=== PATIENT | female | born 1945 | race Caucasian/White ===

== ENCOUNTER 2021-07-15 13:37 | Inpatient (IN) | payer MEDICARE, MEDICAID ==
[~2021-07-15] VITALS: Ht 157.5 cm; Wt 42.0 kg
[~2021-07-15 13:37] MED LIST: ADV50500 IH; ALBU18HF2 INH; CLON-527 PO; CLOP75TA34 PO; HYDR-4383 PO; IPRA4AER IH; LAMO25TA5 PO; OXYGEN NAS; PRAV10TA38 PO; QUET200T5 PO
[2021-07-15] MEDS ORDERED: normal saline 1000ML IV soln IV ONE (16:05)
[2021-07-15] MEDS ORDERED: iohexol 350MG/ML 100ml bottle IV ONE (16:30)
[2021-07-15] MEDS ORDERED: iohexol 350 MG/ML 50ML vial IV ONE (16:30)
[2021-07-15 17:03] LABS: BASOPHILS % (AUTO) 0.5 % (0-1); EOSINOPHILS % (AUTO) 0 % (0-6); LYMPHOCYTES # (AUTO) 1.4 X10'3 (1.1-4.8); LYMPHOCYTES % (AUTO) 15.3 % (21-51); MEAN CORPUSCULAR HEMOGLOBIN 26.4 PG (27.0-31.0); MEAN CORPUSCULAR HGB CONC 32.6 g/dL (33.0-36.5); MEAN CORPUSCULAR VOLUME 81.1 FL (78-98); MEAN PLATELET VOLUME 7.9 FL (7.4-10.4); MONOCYTES # (AUTO) 0.3 X10'3 (0-0.9); MONOCYTES % (AUTO) 3.5 % (2-12); NEUTROPHILS # (AUTO) 7.5 X10'3 (1.8-7.7); NEUTROPHILS % (AUTO) 80.7 % (42-75); PLATELET COUNT 304 X10'3 (140-440); RED BLOOD COUNT 4.94 X10'6 (4.20-5.60); RED CELL DISTRIBUTION WIDTH 17.7 % (11.5-14.5); WHITE BLOOD COUNT 9.3 X10'3 (4.5-11.0)
[2021-07-15 17:27] LABS: ALANINE AMINOTRANSFERASE 31 U/L (12-78); ALBUMIN 3.7 G/DL (3.4-5.0); ALBUMIN/GLOBULIN RATIO 0.9 (1.1-1.5); ANION GAP 5 (8-16); ASPARTATE AMINO TRANSFERASE 23 U/L (10-37); BLOOD UREA NITROGEN 20 MG/DL (7-18); BUN/CREATININE RATIO 41.7 (6.6-38.0); CALCIUM 8.9 MG/DL (8.5-10.1); CHLORIDE 101 MMOL/L (99-107); CREATININE 0.48 MG/DL (0.40-0.90); GLUCOSE 128 MG/DL (70-104); POTASSIUM 4.3 MMOL/L (3.5-5.1); SODIUM 139 MMOL/L (135-145); TOTAL CARBON DIOXIDE 33.1 MMOL/L (24-32); TOTAL PROTEIN 7.7 G/DL (6.4-8.2); eGFR > 90 ML/MIN
[2021-07-15] MEDS ORDERED: heparin 25,000 UNIT/250ml bag 250 ML IV SCH ×2 (18:45→19:45)
[2021-07-15] MEDS ORDERED: heparin 10,000 units/1 ML INJ IV ONE ×3 (18:45→19:45)
[2021-07-15 19:00] LABS: APTT 29 SECONDS (22-32)
[2021-07-15] MEDS ORDERED: morphine 4 MG/ML inj SYRINge IV ONE (19:05)
[2021-07-15] MEDS ORDERED: HYDROcodone/acetaminophen 5mg/325mg tablet PO PRN (19:45)
[2021-07-15] MEDS ORDERED: morphine 2 MG/ML inj. syringe IV PRN (19:45)
[2021-07-15] MEDS ORDERED: heparin 10,000 units/1 ML INJ IV PRN (19:45)
[2021-07-15] MEDS ORDERED: mag hydrox/Alum hydrox/simeth 30ml oral suspension PO PRN (19:45)
[2021-07-15] MEDS ORDERED: magnesium hydroxide 30ml (MOM) UD suspension PO PRN (19:45)
[2021-07-15] MEDS ORDERED: ondansetron/PF 4mg/2ml inj IV PRN (19:45)
[2021-07-15] MEDS ORDERED: acetaminophen 325mg tablet PO PRN ×2 (19:45)
[2021-07-15] MEDS ORDERED: LORA-268 PO (21:17)
[2021-07-15] MEDS ORDERED: APIX5TAB3 PO (21:44)
[2021-07-15] MEDS ORDERED: BUSP15TA7 PO (21:44)
[2021-07-15] MEDS ORDERED: PRED20TA PO (21:44)
--- NOTE | 2021-07-15 22:00 | NUR ---
Received report from CAMERON Garcia RN about patient going to room 3012C. Awaiting on arrival.
--- NOTE | 2021-07-15 22:50 | NUR ---
The patient, HAYES LEONARD, 75 y/o, F admitted by ENRRIQUE CERVANTES MD, was given written information regarding hospital policies, unit procedures and contact persons. See Admission information. V/S: B/P 168/78, R 14, 72 HR, T 98.1, 02 97% on 3L. Patient arrived to the unit in stable condition, no acute distress noted. Safety measures and comfort maintained. Will continue to monitor.
[2021-07-15 23:00] VITALS: BP 168/78
[2021-07-15] MEDS ORDERED: non-formulary drug (Ipratropium/Albuterol Sulfate (Combivent Respimat Inhal Spray) 2 PUFFS IH PRN (23:00)
[2021-07-15] MEDS: morphine 2 MG/ML inj. syringe IV PRN (23:06)
[2021-07-15] MEDS ORDERED: ipratropium/albuterol 3ml nebule ONE (23:11)
[2021-07-15] MEDS: ipratropium/albuterol 3ml nebule NEB SCH (23:17)
[2021-07-15] MEDS: LORazepam 0.5 MG tablet PO PRN (23:46)
[2021-07-15] MEDS: docusate sod 100mg capsule PO SCH (23:46)
[2021-07-16] MEDS: ipratropium/albuterol 3ml nebule NEB SCH ×4 (03:03→20:16)
[2021-07-16 06:00] VITALS: BP 129/69
--- NOTE | 2021-07-16 06:35 | NUR ---
Problems reprioritized. Patient report given, questions answered & plan of care reviewed with AAMIR Cortes.
[2021-07-16 07:35] LABS: BASOPHILS % (AUTO) 0.4 % (0-1); EOSINOPHILS # (AUTO) 0.1 X10'3 (0-0.9); EOSINOPHILS % (AUTO) 0.9 % (0-6); HEMATOCRIT 32.3 % (35.0-45.0); HEMOGLOBIN 10.6 g/dl (12.0-16.0); LYMPHOCYTES # (AUTO) 3.5 X10'3 (1.1-4.8); LYMPHOCYTES % (AUTO) 37.5 % (21-51); MEAN CORPUSCULAR HEMOGLOBIN 26.6 PG (27.0-31.0); MEAN CORPUSCULAR HGB CONC 32.8 g/dL (33.0-36.5); MEAN PLATELET VOLUME 7.8 FL (7.4-10.4); MONOCYTES # (AUTO) 1.1 X10'3 (0-0.9); MONOCYTES % (AUTO) 12.2 % (2-12); NEUTROPHILS # (AUTO) 4.5 X10'3 (1.8-7.7); PLATELET COUNT 229 X10'3 (140-440); RED BLOOD COUNT 3.98 X10'6 (4.20-5.60); RED CELL DISTRIBUTION WIDTH 17.3 % (11.5-14.5); WHITE BLOOD COUNT 9.2 X10'3 (4.5-11.0)
[2021-07-16] MEDS: morphine 2 MG/ML inj. syringe IV PRN (07:48)
[2021-07-16] MEDS: budesonide 0.5mg/2ml UD nebule IH SCH ×2 (07:57→20:00)
[2021-07-16 08:03] LABS: ALBUMIN 2.8 G/DL (3.4-5.0); ANION GAP 4 (8-16); BLOOD UREA NITROGEN 15 MG/DL (7-18); BUN/CREATININE RATIO 32.6 (6.6-38.0); CALCIUM 8.2 MG/DL (8.5-10.1); CHLORIDE 105 MMOL/L (99-107); CREATININE 0.46 MG/DL (0.40-0.90); GLUCOSE 89 MG/DL (70-104); POTASSIUM 4.1 MMOL/L (3.5-5.1); SODIUM 141 MMOL/L (135-145); TOTAL CARBON DIOXIDE 32.2 MMOL/L (24-32); eGFR > 90 ML/MIN
[2021-07-16] MEDS: busPIRone 15mg tablet PO SCH (09:32)
[2021-07-16] MEDS: docusate sod 100mg capsule PO SCH ×2 (09:32→20:52)
[2021-07-16] MEDS: predniSONE 20 mg tablet PO SCH (09:32)
[2021-07-16] MEDS: LORazepam 0.5 MG tablet PO PRN (09:38)
[2021-07-16 11:00] VITALS: BP 145/72
[2021-07-16 15:00] VITALS: BP 150/60
--- NOTE | 2021-07-16 16:29 | NUR ---
provided PO [place] for c/o headache and foot pain
[2021-07-16 18:00] VITALS: BP 154/65
--- NOTE | 2021-07-16 18:25 | NUR ---
Patient in room PCU 3012. I have received report from AAMIR Lovelace, and had the opportunity to ask questions and assume patient care.
[2021-07-16] MEDS: apixaban 5mg tablet PO SCH (20:57)
[2021-07-16] MEDS: HYDROcodone/acetaminophen 10/325mg tab PO PRN (21:02)
[2021-07-16 22:00] VITALS: BP 129/55
[2021-07-17 02:00] VITALS: BP 159/75
[2021-07-17] MEDS: ipratropium/albuterol 3ml nebule NEB SCH ×2 (02:19→08:41)
[2021-07-17 06:00] VITALS: BP 150/72
--- NOTE | 2021-07-17 06:30 | NUR ---
Patient in room PCU 3012. I have received report from AAMIR Kern and had the opportunity to ask questions and assume patient care. Resting comfortably in bed without any concerns.
--- NOTE | 2021-07-17 06:30 | NUR ---
Patient in room PCU 3012. I have received report from Concha RUTLEDGE and had the opportunity to ask questions and assume patient care.
--- NOTE | 2021-07-17 06:44 | NUR ---
Problems reprioritized. Patient report given, questions answered & plan of care reviewed with AAMIR Epps
[2021-07-17 06:53] LABS: BASOPHILS # (AUTO) 0.1 X10'3 (0-0.2); BASOPHILS % (AUTO) 0.5 % (0-1); EOSINOPHILS # (AUTO) 0.1 X10'3 (0-0.9); EOSINOPHILS % (AUTO) 0.5 % (0-6); HEMATOCRIT 34.7 % (35.0-45.0); HEMOGLOBIN 11.4 g/dl (12.0-16.0); LYMPHOCYTES # (AUTO) 3.4 X10'3 (1.1-4.8); LYMPHOCYTES % (AUTO) 33.3 % (21-51); MEAN CORPUSCULAR HEMOGLOBIN 26.7 PG (27.0-31.0); MEAN CORPUSCULAR VOLUME 80.9 FL (78-98); MEAN PLATELET VOLUME 7.8 FL (7.4-10.4); MONOCYTES # (AUTO) 1.2 X10'3 (0-0.9); MONOCYTES % (AUTO) 11.9 % (2-12); NEUTROPHILS # (AUTO) 5.5 X10'3 (1.8-7.7); NEUTROPHILS % (AUTO) 53.8 % (42-75); PLATELET COUNT 237 X10'3 (140-440); RED BLOOD COUNT 4.29 X10'6 (4.20-5.60); RED CELL DISTRIBUTION WIDTH 17.4 % (11.5-14.5); WHITE BLOOD COUNT 10.2 X10'3 (4.5-11.0)
[2021-07-17 07:08] LABS: ANION GAP 3 (8-16); CHLORIDE 105 MMOL/L (99-107); GLUCOSE 77 MG/DL (70-104); SODIUM 141 MMOL/L (135-145); TOTAL CARBON DIOXIDE 33.5 MMOL/L (24-32)
[2021-07-17 07:09] LABS: ALBUMIN 3.1 G/DL (3.4-5.0); BLOOD UREA NITROGEN 12 MG/DL (7-18); BUN/CREATININE RATIO 29.3 (6.6-38.0); CALCIUM 8.6 MG/DL (8.5-10.1); CREATININE 0.41 MG/DL (0.40-0.90); eGFR > 90 ML/MIN
[2021-07-17] MEDS: busPIRone 15mg tablet PO SCH (08:08)
[2021-07-17] MEDS: docusate sod 100mg capsule PO SCH (08:08)
[2021-07-17] MEDS: apixaban 5mg tablet PO SCH (08:09)
[2021-07-17] MEDS: HYDROcodone/acetaminophen 10/325mg tab PO PRN (08:10)
[2021-07-17] MEDS: predniSONE 20 mg tablet PO SCH (08:10)
[2021-07-17] MEDS: budesonide 0.5mg/2ml UD nebule IH SCH (08:41)
[2021-07-17 11:00] VITALS: BP 163/76
[2021-07-17] MEDS ORDERED: APIX5TAB3 PO (11:21)
[2021-07-17] MEDS: LORazepam 0.5 MG tablet PO PRN (11:42)
--- NOTE | 2021-07-17 13:00 | NUR ---
Patient is stable for discharge per MD. Discharge paperwork reviewed with patient. All questions answered. No home medications sent home with patient. PIV and manager change removed from patient. This magnetic tape typewriter operator assisted the patient out of the hospital via a wheelchair to the patient's mode of transportation home.
== END 2021-07-17 13:00 | disposition home or self-care (01) | DRG 74 ==
LOC: ER 13:37 → ED HOLD 19:45 → PCU 3S 22:50
PROVIDERS: ADMIT Internal Medicine; ATTEND Family Medicine
PROC: B4201ZZ Computerized Tomography (CT Scan) of Abdominal Aorta using Low Osmolar Contrast (ICD-10-PCS; principal; 2021-07-15)
PROC: B4241ZZ Computerized Tomography (CT Scan) of Superior Mesenteric Artery using Low Osmolar Contrast (ICD-10-PCS; 2021-07-15)
PROC: B4281ZZ Computerized Tomography (CT Scan) of Bilateral Renal Arteries using Low Osmolar Contrast (ICD-10-PCS; 2021-07-15)
PROC: B42C1ZZ Computerized Tomography (CT Scan) of Pelvic Arteries using Low Osmolar Contrast (ICD-10-PCS; 2021-07-15)
PROC: B42H1ZZ Computerized Tomography (CT Scan) of Bilateral Lower Extremity Arteries using Low Osmolar Contrast (ICD-10-PCS; 2021-07-15)
PROC: B4211ZZ Computerized Tomography (CT Scan) of Celiac Artery using Low Osmolar Contrast (ICD-10-PCS; 2021-07-15)
DX: G62.9 Polyneuropathy, unspecified (principal); J96.11 Chronic respiratory failure with hypoxia; T82.858A Stenosis of other vascular prosthetic devices, implants and grafts, initial encounter; T82.868A Thrombosis due to vascular prosthetic devices, implants and grafts, initial encounter; I48.0 Paroxysmal atrial fibrillation; F41.9 Anxiety disorder, unspecified; K21.9 Gastro-esophageal reflux disease without esophagitis; I25.10 Atherosclerotic heart disease of native coronary artery without angina pectoris; J43.9 Emphysema, unspecified; F31.9 Bipolar disorder, unspecified; M19.90 Unspecified osteoarthritis, unspecified site; I70.213 Atherosclerosis of native arteries of extremities with intermittent claudication, bilateral legs; I70.8 Atherosclerosis of other arteries; I72.4 Aneurysm of artery of lower extremity; Y83.1 Surgical operation with implant of artificial internal device as the cause of abnormal reaction of the patient, or of later complication, without mention of misadventure at the time of the procedure; Y83.2 Surgical operation with anastomosis, bypass or graft as the cause of abnormal reaction of the patient, or of later complication, without mention of misadventure at the time of the procedure; Z86.718 Personal history of other venous thrombosis and embolism; Z83.3 Family history of diabetes mellitus; Z82.49 Family history of ischemic heart disease and other diseases of the circulatory system; Z86.73 Personal history of transient ischemic attack (TIA), and cerebral infarction without residual deficits; Z90.5 Acquired absence of kidney; Z90.79 Acquired absence of other genital organ(s); Z90.722 Acquired absence of ovaries, bilateral; Z87.891 Personal history of nicotine dependence; Z88.0 Allergy status to penicillin; Z88.2 Allergy status to sulfonamides; Z88.8 Allergy status to other drugs, medicaments and biological substances; Z79.899 Other long term (current) drug therapy; Y92.89 Other specified places as the place of occurrence of the external cause
CPT/HCPCS: 36415; 72148; 75635; 80048; 80053; 83605; 84145; 85025; 85730; 87040; 87081; 93005; 93926; 94640; 94760; 96365; 99291; G0378; J1644; J2270; J7030; J7512; Q9967